=== PATIENT | female | born 2005 | race Caucasian/White ===

== ENCOUNTER 2025-04-04 17:50 | Emergency (ER) | payer OTHER, SELFPAY ==
--- NOTE | 2025-04-04 17:51 | ED_ITS ---
HPI - Skin/Abscess/Foreign Bdy General Chief complaint: Skin/Abscess/Foreign Body Stated complaint: Cyst Time Seen by Provider: 04/04/25 18:02 Source: patient, RN notes reviewed and old records reviewed Mode of arrival: ambulatory Limitations: no limitations History of Present Illness HPI narrative: 19-year-old female presents to the [facility] with swelling to the right axilla for the last 3 days that has become red, swollen and warm to touch. Denies history of similar Related Data Home Medications ?Medication ?Instructions ?Recorded ?Confirmed ?Last Taken ?Type norgestimate 0.25 mg-ethinyl tablet 04/04/25 Unknown History estradiol 0.035 mg tablet (Estarylla) Allergies Allergy/AdvReac Type Severity Reaction Status Date / Time adhesive tape Allergy Intermediate Swelling Verified 04/04/25 18:26 Penicillins Allergy Intermediate Hives Verified 04/04/25 18:26 Review of Systems Review of Systems: All systems reviewed & are unremarkable except as noted in HPI and below Constitutional: Constitutional: Reports no additional constitutional complaints Musculoskeletal: Musculoskeletal: Reports no additional musculoskeletal complaints Integumentary/Breasts: Skin/Breast: Reports as per HPI PMFSH Comments At the time of my signature, I reviewed and agree with the nursing past medical, surgical, social, and family history. There is no relevant family history pertinent to the patient complaint. Exam Const: General: cooperative, healthy appearing, comfortable, no acute distress, well developed, alert and well nourished Nutritional Appearance: well nourished Orientation/consciousness: patient oriented x3 Limitations: no limitations HENMT: Head: normal to inspection Eyes: General: appearance normal, both eyes and all related structures Alignment and Position: alignment normal Neck: Neck: normal visual inspection, full ROM, no lymphadenopathy and no meningeal signs Chest: Chest palpation & inspection: normal inspection of the chest Resp: Effort & Inspection: normal respiratory effort and able to speak in complete sentences Auscultation: clear to auscultation bilaterally, no crackles, no rales, no rhonchi and no wheezes Cardio: Rate: regular rate Skin: General skin exam: normal color and no rashes or lesions noted Other: 2 and half by 3.5 cm raised, fluctuant a julianna Neuro: General: patient oriented x3, gait normal, moves all extremities and no meningeal signs Cognition (Neuro): normal cognition Speech: normal speech Gait exam (Neuro): Normal gait present Extrem: General: normal to inspection, full ROM, capillary refill normal and normal gait Psych: Appearance: grossly normal and well kempt Mental Status: mental status grossly normal Speech and movement: Normal speech and movement present and Clear speech present Affect: normal affect Attitude: cooperative Course Course Level of Care: Express Care Visit Vital Signs Vital signs: Vital Signs Temperature 98 F 04/04/25 18:02 Pulse Rate 85 04/04/25 18:02 Respiratory Rate 18 04/04/25 18:02 Blood Pressure 133/85 04/04/25 18:02 Pulse Oximetry 100 04/04/25 18:02 Temperature 98 F 04/04/25 18:02 Pulse Rate 85 04/04/25 18:02 Respiratory Rate 18 04/04/25 18:02 Blood Pressure 133/85 04/04/25 18:02 Pulse Oximetry 100 04/04/25 18:02 Reviewed Procedures Abscess I/D Axilla: Date of Incision: 04/04/25 Time of Incision: 18:35 Side (if applicable): right Local Anesthetic: lidocaine 1% Amount of anesthesia used (mL): 7 Technique: incised with #11 blade Amount of fluid expressed (mL): 25 Irrigation: Yes Packing used?: none I&D Results: Pus Abcess I&D Additional Comments: Procedure explained to patient, verbal consent obtained. Area injected with lidocaine after cleaning entire area with Betadine. Incision made in center of fluctuant area, approximately 25 mils of purulent drainage, culture collected and sent to lab Patient tolerated procedure well MDM - Skin/Abscess/Foreign Bdy MDM Narrative Medical decision making narrative: Patient sitting in exam room. Patient is nontoxic, vitals stable. Patient presents with an abscess to the right axilla Area drained, culture collected Patient is appropriate for outpatient treatment with antibiotics and close follow-up Discharge instructions reviewed with patient, as well as provided in writing per nursing staff. The instructions also include specific and strict return/GO TO THE ER as well as f/u information. All questions have been answered, and the patient deny any further questions with discharge and discharge plan. Some parts of this dictation were generated by voice recognition software and may contain typographical and/or grammatical inaccuracies. Differential Diagnosis Differential diagnosis: Likely abscess of skin or subcutaneous tissue and contact dermatitis Critical Care Time Critical Care Time Critical Care Time: No Discharge Plan Discharge Clinical Impression: Abscess of skin or subcutaneous tissue Qualifiers: Site of cutaneous abscess: other site Qualified Code(s): L02.818 - Cutaneous abscess of other sites Patient Disposition: Home Condition: Stable Instructions: Antibiotic Form, Abscess (ED) Additional Instructions: DO NOT pick at the area. This will only make the area worse and drive infection deeper. Shower and wash with soapy water. Keep area clean and dry. Change the dressing twice daily after washing it. It is recommended that you do use an antibacterial soap like dial Take all the antibiotics as prescribed. Take Tylenol per package instructions Make sure to keep a dressing in place especially while it is draining Follow up with PCP in 7-10 days Go to the ER for worsened condition or Symptoms Patient Language: Yi Prescriptions: New clindamycin HCl [Cleocin HCl] 300 mg capsule 300 mg PO TID 7 Days Qty: 21 0RF No Action norgestimate-ethinyl estradiol [Estarylla] 0.25-0.035 mg tablet Follow-up/Referrals: UNKNOWN,DOCTOR [Non-Staff] - Time of Disposition: 18:55
[2025-04-04 18:02] VITALS: BP 133/85; PULSE 85; RESP 18; TEMP 36.6; O2SAT 100
[2025-04-04] MEDS: LIDOCAINE 1% LOCAL INJ 2 ML AMPUL 6 ML INFILTRATE (18:27)
== END 2025-04-04 19:00 | disposition home or self-care (01) ==
PROVIDERS: Emergency Provider Nurse Practitioner
DX: L02.411 Cutaneous abscess of right axilla (principal)
CPT/HCPCS: 10060; 87070; 87075; 99203; G0463; J2003